=== PATIENT | female | born 1955 | race Caucasian/White ===

== ENCOUNTER 2016-07-16 05:19 | Day surgery (SDC) | payer BC ==
[~2016-07-16] VITALS: Ht 165.1 cm; Wt 79.4 kg
[~2016-07-16 05:19] MED LIST: AMBIEN CR6.25 MG PO; AMLODIPINE BESY10 MG PO; BYSTOLIC10 MG PO; TYLENOL ARTHRI650 MG PO; WOMEN'S DAILY1 EAC4 PO
[2016-07-16 09:45] VITALS: BP 129/60
[2016-07-16 10:40] VITALS: BP 90/53
[2016-07-16 11:15] VITALS: BP 102/59
[2016-07-16 11:30] VITALS: BP 110/59
[2016-07-16 11:35] VITALS: BP 118/60
== END 2016-07-16 11:40 | disposition home or self-care (01) ==
LOC: SDC 05:19
DX: N84.0 Polyp of corpus uteri (principal); Z87.891 Personal history of nicotine dependence; N81.12 Cystocele, lateral; N39.46 Mixed incontinence; E66.09 Other obesity due to excess calories; N81.6 Rectocele; I10 Essential (primary) hypertension; Z98.51 Tubal ligation status; Z80.3 Family history of malignant neoplasm of breast; Z88.2 Allergy status to sulfonamides; K90.41 Non-celiac gluten sensitivity
CPT/HCPCS: 88305; J0131; J0690; J1170; J2250; J3010